=== PATIENT | female | born 1985 | race African-American/Black ===

== ENCOUNTER 2019-05-21 22:35 | Emergency (ER) | payer MEDICAID ==
[~2019-05-21] VITALS: Ht 165.1 cm; Wt 75.0 kg
[2019-05-22] MEDS ORDERED: ALPRAZOLAM 0.5 MG TABLET PO ONE
[2019-05-22] MEDS ORDERED: IBUPROFEN 600MG TABLET PO ONE
[2019-05-22 00:05] VITALS: BP 143/78
== END 2019-05-22 01:07 | disposition home or self-care (01) ==
LOC: ER 22:35
DX: R07.89 Other chest pain (principal); F41.9 Anxiety disorder, unspecified; F17.210 Nicotine dependence, cigarettes, uncomplicated; V43.52XA Car driver injured in collision with other type car in traffic accident, initial encounter; Y93.89 Activity, other specified; Y92.488 Other paved roadways as the place of occurrence of the external cause
CPT/HCPCS: 71045; 81025; 99283